=== PATIENT | male | born 1985 | race Caucasian/White ===

== ENCOUNTER 2020-06-27 14:58 | Outpatient (CLI) | payer OTHER ==
--- NOTE | 2020-06-27 15:39 | RAD ---
Right knee:3 views INDICATIONS:Arthritis. Knee pain COMPARISON:None FINDINGS: Joint spaces are preserved. No significant degenerative change. No joint effusion. No soft tissue abnormality. IMPRESSION: Unremarkable right knee
== END 2020-06-27 14:59 | disposition home or self-care (01) ==
LOC: MADRAD 14:58
PROVIDERS: ATTEND Orthopaedic Surgery
DX: M17.11 Unilateral primary osteoarthritis, right knee (principal)